=== PATIENT | male | born 1980 | race Hispanic/Latino ===

== ENCOUNTER 2022-08-09 18:57 | Emergency (ER) | payer OTHER, BC ==
[~2022-08-09] VITALS: Ht 162.6 cm; Wt 97.1 kg
[~2022-08-09 18:57] MED LIST: BUTALB-CAFF-AC1 EACH PO
[2022-08-09] MEDS ORDERED: IBUPROFEN 600 MG TAB PO STA (19:47)
[2022-08-09] MEDS ORDERED: NAPROSYN500 MG PO (20:30)
[2022-08-09] MEDS ORDERED: CYCLOBENZAPRINE5 MG PO (20:30)
== END 2022-08-09 21:03 | disposition home or self-care (01) ==
LOC: ER 19:32
DX: S29.012A Strain of muscle and tendon of back wall of thorax, initial encounter (principal); S63.591A Other specified sprain of right wrist, initial encounter; V43.52XA Car driver injured in collision with other type car in traffic accident, initial encounter; Y92.488 Other paved roadways as the place of occurrence of the external cause
CPT/HCPCS: 99283